=== PATIENT | male | born 1955 | race Caucasian/White ===

== ENCOUNTER 2017-02-18 09:24 | Emergency (ER) | payer OTHER ==
[2017-02-18 10:07] LABS: BASOPHILS # (AUTO) 0.03 10*3/UL; BASOPHILS % (AUTO) 0.4 % (0-1); EOSINOPHILS # (AUTO) 0.45 10*3/UL; EOSINOPHILS % (AUTO) 5.9 % (0-8); HEMATOCRIT 42.3 % (42.0-52.0); HEMOGLOBIN 14.1 g/dL (14.0-18.0); LYMPHOCYTES # (AUTO) 1.67 10*3/uL; MEAN CORPUSCULAR HEMOGLOBIN 30.2 PG (27-31); MEAN CORPUSCULAR HGB CONC 33.3 g/dL (33-37); MEAN CORPUSCULAR VOLUME 90.6 FL (80-90); MEAN PLATELET VOLUME 9.9 FL (7.4-12.2); MONOCYTES # (AUTO) 0.86 10*3/UL (0.3-0.8); MONOCYTES % (AUTO) 11.3 % (5-15); NEUTROPHILS % (AUTO) 60.1 % (50-80); RED BLOOD COUNT 4.67 10^6/uL (4.70-6.10)
[2017-02-18 10:20] LABS: PLATELET MORPHOLOGY COMMENT NORMAL MORPHOLOGY (NORM); RBC MORPHOLOGY COMMENT NORMAL MORPHOLOGY (NORM); WBC MORPHOLOGY COMMENT NORMAL MORPHOLOGY (NORM)
[2017-02-18 10:39] VITALS: RESP 18; TEMP 64
[2017-02-18] MEDS ORDERED: KETOROLAC 60 MG/2 ML VIAL IM ONE (11:14)
--- NOTE | 2017-02-18 11:17 | DI ---
HISTORY: Sudden onset of severe left hip pain x3 days. FINDINGS/IMPRESSION: No evidence for acute displaced fracture. If warranted, MRI can be obtained fo r further evaluation.
--- NOTE | 2017-02-19 00:11 | PDOC ---
Hip Injury/Pain HPI - General Chief Complaint: Lower Extremity Problem/Injury Stated Complaint: left hip pain/difficulty walking Date Seen by Provider: 02/18/17 Time Seen by Provider: 09:35 Source: POSITIVE: Patient Exam Limitations: POSITIVE: No limitations Nurse's Notes Reviewed & Considered: Yes - History of Present Illness Initial Comments: The patient is a 61-year-old male. He presents to the emergency room complaining of pain to the left hip for the past 2 days. The pain is over the lateral aspect of the hip primarily. He states that the pain is worse when he starts to ambulate after resting for a while, especially when he gets up in the morning. He states that after he has walk for a while the pain lessens. 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 He cannot recall any direct trauma. Patient has a history of benign prostatic hypertrophy. No fevers or chills. No noted swelling. Have you received a tetanus shot in the past 10 years?: Unknown Location: Left Hip Timing: REPORTS: Abrupt, Intermittent (Pain with ambulation and direct palpation over lateral aspect of hip) Duration: >24 hours (2 days) Severity: Moderate Location at Time of Onset: REPORTS: Home Context: DENIES: Fall, Tripped, Slipped, Lost Balance, Fainted, Other Concurrent Injuries: DENIES: Neck, Head, Back, Chest, Abdomen, Extremities, Face , Other Quality: REPORTS: "Pain" (As above) Modifying Factors: REPORTS: Walking (Walking exacerbates, but pain becomes less after he has ambulated some), Other (Direct palpation) Symptoms Prior to Fall: DENIES: Fever, Chills, Diaphoresis, Diaphoresis, Chest Pain, Weakness, Rapid Heart Rate, Nausea, Vomiting, Diarrhea, Dizziness, Light- Headedness, Headache, Seizure, Other Subsequent Symptoms: DENIES: Sensory Loss, Motor Loss, Numbness, Weakness, Bowel / Bladder Problems, Other Similar Symptoms Previously: No Recent Care Received: REPORTS: Denies Any Prior Injuries Related to Current Complaint?: No - Patient Home Medications Home Medications: Home Medications Aspirin [Aspir 81] 81 mg ORAL QD tab 12/10/11 [place]-3 Fatty Acids/Fish Oil [Fish Oil 1,000 Mg Capsule] 1 each PO QD #90 cap Cholecalciferol (Vitamin D3) [Vitamin D-3] 1 cap PO QD #90 cap 11/10/15 Finasteride 1 tab ORAL QD #30 tab 01/28/17 Simvastatin 1 tab PO QHS #30 tab 01/28/17 Tamsulosin HCl [Flomax] 1 cap ORAL QD #30 capsule 01/28/17 Ibuprofen [Advil] 400 mg PO QID PRN 02/18/17 Ketorolac Tromethamine [Toradol] 10 mg PO Q6H PRN #20 tablet 02/18/17 - Patient Allergies Allergies/Adverse Reactions: Allergies Allergy/AdvReac Type Severity Reaction Status Date / Time No Known Allergies Allergy Verified 02/18/17 09:32 Past Medical History - heen HEENT History: Dentures/Partials, Other (please comment) Additional HEENT History: WEARS GLASSES. TAKEN OUT DENTURES Cardiovascular History: Hyperlipidemia Respiratory History: Pleurisy Gastrointestinal History: Denies History Genitourinary History: Other (please comment) Additional Genitourinary History: BPH Endocrine History: Denies History Musculoskeletal History: Denies History Prosthesis or Implant: No Neurological History: Denies History Blood Disorders: Denies History Psychiatric History: Denies History History of Sexually Transmitted Diseases: No Male Reproductive History: Other (please comment) Additional Male Reproductive History: enlarged prostate Cancer History: Denies History In Past Year Been Physically Harmed or Verbally Threatened: No History of MDRO: No History of Other Communicable Diseases: No Tobacco Use: Never Smoker Alcohol Use: Rarely Substance Use Type: None Previous Surgical History: Yes Type / Date of Surgery: PROSTATE BX Anesthesia Reactions: No Malignant Hyperthermia: No Significant Family History: No pertinent family hx Past Medical History Reviewed: Reviewed - No Changes ROS - Limitations ROS Limitations: No Limitations Constitution: REPORTS: Denies Symptoms Cardiovascular: REPORTS: Denies Cardiac Symptoms Respiratory: REPORTS: Denies Resp Symptoms Neurological: REPORTS: Denies Neuro Symptoms Gastrointestinal: REPORTS: Denies GI Symptoms Endocrine: REPORTS: Denies Symptoms Musculoskeletal: REPORTS: Joint Pain (Left hip) Genitourinary: REPORTS: Denies Symptoms Eyes: REPORTS: Denies Symptoms ENT: REPORTS: Denies Symptoms Skin: REPORTS: Denies Skin Symptoms Lympathic: REPORTS: Denies Lympathic Symptoms Immunologic: POSITIVE: Denies Symptoms Psychiatric: POSITIVE: Denies Psych Symptoms Hip Injury / Pain Exam - General Appearance General Appearance: POSITIVE: Alert, Cooperative, No Acute Distress, No Evidence of Trauma - Lower Extremity Extremities: POSITIVE: Normal ROM, No Pedal Edema, No Obvious Injury to Knee, No Deformity to Knee, Normal Tendon Exam, Hip Pain on Leg Movement (No pain left hip on passive movement. Range of motion of the hip is intact. Pain is exacerbated when he abduction his hip, especially against resistance. He has pain on direct palpation over the greater trochanter.). NEGATIVE: Shortening of Leg, External Rotation of Leg, Hip/Knee Tenderness, Pedal Edema, Ecchymosis, Erythema, Soft Tissue Injury - HEENT HEENT: POSITIVE: Head Inspection Nml, Eyes Inspection Nml, Ears Inspection Nml, Nose Inspection Nml, Oral/Dental Inspect. Nml, Pharynx Inspect. Nml, PERRL, EOMI - Pupil Size Pupil Size: 3 mm: Bilateral - Neck/Back Neck: POSITIVE: Normal Inspection, Non-Tender Back: POSITIVE: Normal Inspection, No CVA Tenderness, Non Tender, Painless ROM, No Vertebral Tenderness - Respiratory / CVS Cardiovascular: POSITIVE: Regular Rate and Rhythm, Heart Sounds Normal, Equal Pulses, Strong Pulses, No Murmur, No Gallop, No JVD, No Pulse Deficit Respiratory: POSITIVE: Chest Non Tender, No Ecchymosis, Breath Sounds Normal, No Respiratory Distress Peripheral Pulses: Radial (R): 2+, Radial (L): 2+, Dorsalis-pedis (R): 2+, Dorsalis-pedis (L): 2+ - Skin Skin: POSITIVE: Color Normal, No Rash, Warm, Dry, Normal Palpation, Other (No signs of infection) - Neuro/Psych Neuro / Psych: POSITIVE: Oriented x 3, Neuro Grossly Intact, Mood Appropriate, Affect Appropriate Reflexes: Patellar (R): 2+, Patellar (L): 2+ Images - Lower Extremities Lower Extremities: 1 - Pain on palpation over the trochanter 2 - Pain on palpation over the trochanter Hip Injury / Pain Progress - Results Reviewed by me Xrays/CTs/US Reviewed by me: Yes Discussed with Radiologist: Yes Radiology Findings: X-ray left hip normal Lab Results Reviewed: Yes (CBC, CRP and sedimentation rate all normal) Lab Results:: Laboratory Results 02/18/17 Range/Units 10:02 WBC 7.64 (4.8-10.8) 10^3/uL RBC 4.67 L (4.70-6.10) 10^6/uL Hgb 14.1 (14.0-18.0) g/dL Hct 42.3 (42.0-52.0) % MCV 90.6 H (80-90) FL MCH 30.2 (27-31) PG MCHC 33.3 (33-37) g/dL RDW Std Deviation 41.3 (39-50) fL RDW Coeff of [place] 12.6 (11.5-14.5) % Plt Count 297 (140-350) 10*3/uL MPV 9.9 (7.4-12.2) FL Immature Gran % (Auto) 0.4 (0-5) % Neut % (Auto) 60.1 (50-80) % Lymph % (Auto) 21.9 (10-50) % [place] % (Auto) 11.3 (5-15) % Eos % (Auto) 5.9 (0-8) % Baso % (Auto) 0.4 (0-1) % Immature Gran # (Auto) 0.03 10*3/UL Neut # (Auto) 4.60 10*3/UL Lymph # (Auto) 1.67 10*3/uL [place] # (Auto) 0.86 H (0.3-0.8) 10*3/UL Eos # (Auto) 0.45 10*3/UL Baso # (Auto) 0.03 10*3/UL WBC Morphology Comment Normal morphology (NORM) Plt Morphology Comment Normal morphology (NORM) RBC Morph Comment Normal morphology (NORM) ESR 6 (0-15) MM/HR C-Reactive Protein < 0.5 (0.0-0.9) mg/dL - Patient's Progress Pain Medication Addressed: POSITIVE: Yes (Toradol 60 mg IM given and prescription for Toradol by mouth as outpatient) School/Work Release Addressed: POSITIVE: Yes (Work excuse for 72 hours given) Re-Examine Time: 11:20 Status: POSITIVE: Unchanged, Re-Examined - Consult Counseled: POSITIVE: Patient, Family (), RE: Lab Results, RE: Radiology Results, RE: DX, RE: Need for F/U Patient Care Time - Estimated PCT Patient Care Time (In Minutes): 45 Vital Signs - VS Reviewed Vital Signs Reviewed: Yes Discharge Clinical Impression: Trochanteric bursitis Discharge Disposition: Discharged to Home Condition: Stable Prescriptions / Orders: Ketorolac Tromethamine [Toradol] 10 mg PO Q6H PRN #20 tablet PRN Reason: Pain Patient Instructions Given at Discharge: Hip Bursitis (ED) Additional Instructions: Rest for the next 72 hours. Keep weightbearing to a minimum. Cool compresses to area of discomfort. Toradol, take 24 hours after your shot which she received in the emergency room, and then 1 tablet every 4-6 hours as necessary for pain up to a maximum of 4 in 24 hours. Do not take Advil, ibuprofen, Aleve , Naprosyn or any similar anti-inflammatory medications while you're taking Toradol. Follow-up with your primary care provider or orthopedist if you are not considerably improved in 3 or 4 days. Return here anytime if condition worsens in any way whatsoever. I have given you a work excuse for 3 days. Follow Up With: RUTH SCOTT [Primary Care Provider] - (Instructions as above. Follow-up with your primary care provider or orthopedist. Return here anytime if condition worsens in any way.)
== END 2017-02-18 11:47 | disposition home or self-care (01) ==
LOC: ER 09:24
DX: M70.62 Trochanteric bursitis, left hip (principal); N40.0 Benign prostatic hyperplasia without lower urinary tract symptoms; E78.5 Hyperlipidemia, unspecified
CPT/HCPCS: 73502; 85025; 85652; 86140; 96372; 99283 ×2; J1885

== ENCOUNTER 2018-03-27 09:14 | Inpatient (IN) ==
[2018-03-27] MEDS ORDERED: Sodium Chloride 0.9% 1,000 ML PRIMARY IV ONE ×2 (09:32→11:41)
[2018-03-27] MEDS ORDERED: MORPHINE SULFATE 4 MG/1 ML IVP ONE ×3 (09:32→13:37)
[2018-03-27] MEDS ORDERED: ONDANSETRON 4 MG/2 ML VIAL IVP ONE (09:32)
--- NOTE | 2018-03-27 09:34 | EKG ---
[address] [address] Measurements Intervals [place] Rate: 57 P: 46 CO: 153 QRS: 93 QRSD: 103 T: 69 QT: 386 QTc: 380 Interpretive Statements SINUS BRADYCARDIA BORDERLINE RIGHT AXIS DEVIATION Compared to ECG 01/27/2015 14:59:49 Sinus rhythm no longer present Electronically Signed On 03-27-18 10:50:51 MDT by Oseas Avila [email or web address] [facility], [id number]
--- NOTE | 2018-03-27 09:36 | PDOC ---
Abdomen/Flank HPI - General Chief Complaint: Abdomen Pain Stated Complaint: epigastric pain Date Seen by Provider: 03/27/18 Time Seen by Provider: 09:20 Source: POSITIVE: Patient, Spouse Exam Limitations: POSITIVE: Clinical condition Nurse's Notes Reviewed & Considered: Yes - History of Present Illness Initial Comments: This is a well-developed, well-nourished, 62-year-old male, complaining of severe abdominal pain. Patient was in his normal state of health this morning when he developed abdominal bloating that began about 0800 hrs. and progressed to severe abdominal pain. He had his normal breakfast this morning which consisted of cereal, milk, and coffee. His breakfast was at approximately 0430 hrs. 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 He contacted his to bring him medicine for his bloating. After he took his Gas-X his pain significantly increased. When he arrived here at the emergency department he was moaning, clutching his abdomen with both hands, and nearly incoherent when questioned. Further review of systems is unavailable because of the patient's clinical status. Patient was found to be tachypneic, bradycardic, and hypotensive. Body Location Affected: REPORTS: Abdomen Timing: REPORTS: Abrupt Duration: 1 hour Severity: Severe Quality: REPORTS: "Pain" Abdominal Pain Onset Location: REPORTS: Epigastric Abdominal Pain Radiation: REPORTS: Epigastric Context: REPORTS: Activity Modifying Factors: improves with: Nothing Associated Symptoms: REPORTS: Chest pain Similar Symptoms Previously: No Recent Care Received: REPORTS: Denies Any Prior Injuries Related to Current Complaint?: No - Patient Home Medications Home Medications: Home Medications Aspirin [Aspir 81] 81 mg ORAL QD tab 12/10/11 [place]-3 Fatty Acids/Fish Oil [Fish Oil 1,000 Mg Capsule] 1 ea PO QD #90 cap Cholecalciferol (Vitamin D3) [Vitamin D-3] 1 cap PO QD #90 cap 11/10/15 Tamsulosin HCl [Flomax] 1 cap ORAL QD #30 cap 01/28/17 Ibuprofen [Advil] 400 mg PO QID PRN 02/18/17 finasteride 5 mg tablet 5 mg PO QDAY #30 tab 02/19/18 simvastatin 40 mg tablet 40 mg PO QHS #30 tab 03/25/18 - Patient Allergies Allergies/Adverse Reactions: Allergies 3 Allergy/AdvReac Type Severity Reaction Status Date / Time No Known Allergies Allergy Verified 03/27/18 09:17 Past Medical History - heen HEENT History: Dentures/Partials, Other (please comment) Additional HEENT History: WEARS GLASSES. TAKEN OUT DENTURES Cardiovascular History: Hyperlipidemia Respiratory History: Pleurisy Gastrointestinal History: Denies History Genitourinary History: Other (please comment) Additional Genitourinary History: BPH Endocrine History: Denies History Musculoskeletal History: Denies History Prosthesis or Implant: No Neurological History: Denies History Blood Disorders: Denies History Psychiatric History: Denies History History of Sexually Transmitted Diseases: No Male Reproductive History: Denies History Cancer History: Denies History In Past Year Been Physically Harmed or Verbally Threatened: No History of MDRO: No History of Other Communicable Diseases: No Tobacco Use: Never Smoker Alcohol Use: Rarely In the Past 12 Months, Have Used or Abuse Any Substance: None Previous Surgical History: Yes Type / Date of Surgery: PROSTATE BX Anesthesia Reactions: No Malignant Hyperthermia: No Significant Family History: No pertinent family hx ROS - Limitations ROS Limitations: Clinical Condition (Further review of systems is unavailable because the patient's clinical status.) Abdominal/Flank Pain PE - General Appearance General Appearance: POSITIVE: No Evidence of Trauma, Anxious, Severe Distress - HEENT HEENT: POSITIVE: Head Inspection Nml, Eyes Inspection Nml, Ears Inspection Nml, Nose Inspection Nml, Oral/Dental Inspect. Nml, Pharynx Inspect. Nml, PERRL, EOMI - Neck Neck: POSITIVE: Normal Inspection, No Apparent Injury - Respiratory Respiratory: POSITIVE: Breath Sounds Normal, Chest Non-Tender, Other (Tachypnea) - Cardiovascular Cardiovascular: POSITIVE: Regular Rate and Rhythm, Heart Sounds Normal, Strong Pulses Peripheral Pulses: Radial (R): 2+ - Chest Chest: POSITIVE: Non Tender - Abdomen Abdomen: No Splenomegaly: (All Quadrants), No Hepatomegaly: (All Quadrants), No Rebound: (All Quadrants), No Palpable Pulse: (All Quadrants), No Palpabale Mass : (All Quadrants), Tenderness Noted: (All Quadrants), Distention: (All Quadrants ), Guarding: (All Quadrants), Rigid: (All Quadrants) - Back Back: POSITIVE: Normal Inspection - Skin Skin: POSITIVE: Intact, Normal For Race, Warm, Dry, No Rash - Extremities Extremity: Non-Tender: (All Extremities), Normal ROM: (All Extremities), Normal Inspection: (All Extremities), Pelvis Stable: (All Extremities) - Neurological Neurological: POSITIVE: Affect Apporpriate, Oriented X3, Motor Normal, Sensation Normal - Psychological Psychiatric: POSITIVE: Affect Appropriate, Mood Appropriate Abdomen Progress - Results Reviewed by me Xrays/CTs/US Reviewed by me: Yes Discussed with Radiologist: Yes Lab Results Reviewed by Me: Yes CBC and BMP: 03/27/18 09:35 03/27/18 09:35 EKG Interpreted/Reviewed By Me:: Yes (sinus bradycardia with rate of 57 beats a minute) EKG Interpretation:: POSITIVE: Abnormal EKG - Patient's Progress Pain Medication Addressed: POSITIVE: Yes Re-examine Time: 11:17 Re-Examine Time: 14:09 Status: POSITIVE: Improved - Consult Consult (If Yes, Name of Consulting MD & Time Called): Yes (Dr. Serrato 1100hrs. Dr. Serrato 1410hrs) Consulting MD will see pt:: [place]ITIVE: [facility] [place] Counseled: POSITIVE: Patient, Family, RE: Lab Results, RE: Radiology Results, RE : DX - CP/AMI Quality Measure Initiative: CP/AMI: POSITIVE: EKG Patient Care Time - Estimated PCT Patient Care Time (In Minutes): 60 Vital Signs - Recent Vital Signs Vital Signs: Vital Signs (Last 8 hours) Temp Pulse Resp BP Pulse Ox 03/27/18 09:14 97.2 F 57 L 30 H 94/84 98 - VS Reviewed Vital Signs Reviewed: Yes Discharge Clinical Impression: Pancreatitis Discharge Disposition: Admit to Inpatient Condition: Stable Follow Up With: RUTH SCOTT [Primary Care Provider] - Date Decision to Admit to Inpatient: 03/27/18 Time Decision to Admit to Inpatient: 14:10
[2018-03-27 09:37] LABS: BASOPHILS # (AUTO) 0.03 10*3/UL; BASOPHILS % (AUTO) 0.2 % (0-1); EOSINOPHILS # (AUTO) 0.26 10*3/UL; EOSINOPHILS % (AUTO) 1.5 % (0-8); Hematocrit [HCT] 41.2 % (42.0-52.0); Hemoglobin [HGB] 14.1 g/dL (14.0-18.0); LYMPHOCYTES # (AUTO) 2.21 10*3/uL; MEAN CORPUSCULAR HEMOGLOBIN 31.1 PG (27-31); MEAN CORPUSCULAR HGB CONC 34.2 g/dL (33-37); MEAN CORPUSCULAR VOLUME 90.7 FL (80-90); MEAN PLATELET VOLUME 10.2 FL (7.4-12.2); MONOCYTES # (AUTO) 0.63 10*3/UL (0.3-0.8); MONOCYTES % (AUTO) 3.6 % (5-15); NEUTROPHILS # (AUTO) 14.29 10*3/UL; NEUTROPHILS % (AUTO) 81.8 % (50-80); RED BLOOD COUNT 4.54 10^6/uL (4.70-6.10)
[2018-03-27] MEDS ORDERED: LORazepam 2 MG/1 ML VIAL IVP ONE ×2 (09:37→13:37)
[2018-03-27 09:52] LABS: BLOOD UREA NITROGEN 22 mg/dL (7-22); BUN/CREATININE RATIO 18.33 (6-20); CHOL/HDL RATIO 2.34 RATIO (0-4.0); GAMMA GLUTAMYL TRANSPEPTIDASE 529 IU/L (8-78); SERUM ALBUMIN 4.2 g/dL (3.5-4.8); SERUM CHOLESTEROL 157 mg/dL (120-200)
--- NOTE | 2018-03-27 10:13 | DI ---
AP CHEST X-RAY, 03/27/2018 9:32 AM : Clinical History: Shortness of breath. Previous Exam: 01/08/2007. On this view, the patient took a shallow inspiration. There is no acute soft tissue or bony abnormali ty. The heart size is at the upper limits of normal for this projection and shallow inspiration. Ther e is no CHF. Lungs are clear. Mediastinal structures are normal. There are no pulmonary nodules. Reading: Normal chest x-ray for the shallow inspiratory effort.
[2018-03-27 10:25] LABS: PLATELET MORPHOLOGY COMMENT NORMAL MORPHOLOGY (NORM); RBC MORPHOLOGY COMMENT NORMAL MORPHOLOGY (NORM); WBC MORPHOLOGY COMMENT NORMAL MORPHOLOGY (NORM)
[2018-03-27 10:36] LABS: CLARITY,URINE CLEAR (CLEAR); COLOR,URINE YELLOW (Y); GLUCOSE, URINE (UA) NEGATIVE (NEG); PH,URINE 5.5 (5.0-8.5); PROTEIN,URINE NEGATIVE (NEG); URINE SAMPLE TYPE CLEAN CATCH URINE
[2018-03-27 10:37] LABS: BILIRUBIN,URINE NEGATIVE (NEG); OCCULT BLOOD,URINE NEGATIVE (NEG); UROBILINOGEN,URINE 0.2 EU/dL (0.2)
[2018-03-27 10:57] LABS: LIPASE 37450 IU/L (23-300)
--- NOTE | 2018-03-27 11:00 | DI ---
CT ANGIOGRAM OF THE CHEST, 03/27/2018 10:04 AM : Clinical History: Chest pain. Shortness of breath. Previous Exam: None at this facility. Scans are performed from the base of the neck to the lower lung bases with IV contrast. 65 mL of Isov ue 370 was injected IV. Proprietary automated bolus tracking software was used to verify the timing o f the injection. The base of the neck and thoracic inlet are normal. There are no abnormal axillary, supraclavicular, mediastinal, or hilar nodes. The heart is normal. The pulmonary arteries are normal. There is no pulm onary arterial hypertension. There is no evidence of pulmonary embolism or pulmonary infarction. The lungs are clear and there are no pulmonary nodules or masses. READING: Normal CTA of the chest. There are no pulmonary emboli or pulmonary infarcts.
--- NOTE | 2018-03-27 11:49 | DI ---
CT ABDOMEN SCAN WITH IV CONTRAST, 03/27/2018 9:32 AM : Clinical History: Epigastric pain. Previous Exam: None at this facility. Scans are performed from the lower lung bases through the liver and kidneys with IV contrast. This is the same bolus of contrast used for the CT angiogram of the chest. No oral or rectal contrast was or dered. The lung bases are clear. The liver is normal. There are at least 2 densities within the gallbladder measuring about 3-5 mm in diameter consistent with gallstones. There is no thickening of the gallblad radha wall or edema to indicate acute cholecystitis. The common duct is difficult to visualize but is e stimated to measure between 5-6 mm in diameter. There is diffuse infiltrative/inflammatory change ori rounding the entire pancreas consistent with pancreatitis. No abscess or pseudocyst is present. There are no pancreatic calcifications. There is a small amount of fluid that either is in the retroperito adelaida space in the perinephric fat or is in the intraperitoneal space superficial to the right perinep hric fascia. Both kidneys are normal in size, shape, position and contour. There is no hydronephrosis or hydroureter. Both kidneys have parapelvic cysts. No renal or ureteral calculi are present. There are no abnormal retrocrural or periaortic nodes. READIN. Acute pancreatitis. There is no pseudocyst or abscess. There are no pancreatic calcifications. 2. Cholelithiasis without evidence of cholecystitis. The common duct is difficult to visualize but m easures between 5-6 mm. 3. There may be a small amount of ascites anterior to the right kidney. CT PELVIS SCAN WITH IV CONTRAST, 03/27/2018 9:32 AM: Clinical History: See above. Previous Exam: None at this facility. Scans are performed from just superior to the umbilicus to the symphysis pubis with IV contrast. This is the same bolus of contrast used for the CT scans of the abdomen. Scans through the lower abdomen and pelvis show no masses, enhancing lesions, or abnormal fluid colle ctions. There is no adenopathy. The appendix is normal and is retrocecal in location. The small bowel , terminal ileum, and ileocecal valve are normal. The colon is also normal. There is a small umbilica l hernia through which only mesenteric fat has herniated. There is marked enlargement of the prostate . READIN. Normal CT scan of the pelvis with IV contrast. 2. There is marked prostatic enlargement.
--- NOTE | 2018-03-27 13:08 | DI ---
GALLBLADDER AND LIVER ULTRASOUND, 03/27/2018 11:37 AM: Clinical History: Epigastric pain. Previous Exam: None at this facility. Technique: Scans are performed through the right upper quadrant in multiple projections. The patient was rolled from side to side and the gallbladder was balloted with the probe to facilitate visualizat ion of small gallstones. The gallbladder is well distended and has a normal wall thickness. There are gallstones. The largest gallstone measures 7 mm. The common bile duct measures 5 mm. There is no Brock's sign. No fluid is s een in Morison's pouch. The pancreas is only visualized in the body and is grossly normal. The visual ized portions of the liver, right kidney, and IVC are normal. The aorta is normal. Readin. Cholelithiasis. There is no Brock's sign. The common duct measures 5 mm. 2. Only a limited portion of the pancreas is visualized and that area appears grossly normal. 3. Limited views of the liver, right kidney, IVC, and aorta are normal.
--- NOTE | 2018-03-27 14:23 | DI ---
MRI ABDOMEN WITHOUT IV CONTRAST, 03/27/2018 11:17 AM: Clinical History: Abdominal pain. Pancreatitis. Previous Exam: None at this facility. Axial T1 pre contrast; axial and coronal T2 weighted fat sat; axial breath-hold T2 weighted; axial in and out of phase T1-weighted scans. A 3-D MRCP sequence and an MRCP thick slice fat-saturated T2-lisa ghted scan was performed No oral contrast was administered. There are extensive motion artifacts because the patient apparently fell asleep during the breath hol d sequences, and was also short of breath. The liver and both adrenal glands and the spleen are neelima l. There are at least 2 gallstones present in the neck of the gallbladder. The common hepatic duct me asures 5 mm and the common bile duct measures 5 mm. Thick slice MRCP images. They show no intrahepati c biliary dilatation. The distal common bile duct in the head of the pancreas has an abrupt change in caliber but this can also be merely that the duct makes a right angle turn as it enters into the amp daniel. The pancreatic duct is normal. There is edema surrounding the anterior and posterior margins of the pancreas indicating acute inflammation. There is fluid in the retroperitoneal space anterior to the renal fascia bilaterally with a small amount of free fluid in the right gutter. Both kidneys show parapelvic cysts without evidence of hydronephrosis or hydroureter. Readin. Cholelithiasis. The common hepatic and common bile ducts measure 5 mm. Although the distal common bile duct has the appearance of an abrupt cutoff, there is no definite meniscus, and it could be donna t the distal common bile duct is making a sharp right angle turn into the ampulla. If there were a di stal common bile duct stone, then it would be causing only a low-grade partial obstruction because th e common duct is not dilated. 2. Pancreatitis. No mass is identified, although no IV contrast was administered. There is fluid in the retroperitoneal space as well as in the right gutter. 3. The liver, both adrenal glands, and spleen are normal.
[2018-03-27] MEDS ORDERED: HYDROmorphone 2 MG/1 ML IVP PRN (15:02)
[2018-03-27] MEDS ORDERED: CALCIUM CARBONATE 500 MG (TUMS) CHEWABLE TABLET PO PRN (15:02)
[2018-03-27] MEDS ORDERED: DOCUSATE 100 MG CAPSULE PO PRN (15:02)
[2018-03-27] MEDS ORDERED: ACETAMINOPHEN 325 MG TABLET PO PRN (15:02)
[2018-03-27] MEDS ORDERED: ONDANSETRON 4 MG/2 ML VIAL IVP PRN (15:02)
[2018-03-27] MEDS ORDERED: LIDOCAINE W/ SODIUM BICARB 0.5 ML SYR SUBD PRN (15:02)
[2018-03-27] MEDS: D5-1/2NS + 20mEq KCL 1,000 ML PRIMARY IV SCH ×2 (15:38→22:50)
--- NOTE | 2018-03-27 16:32 | PDOC ---
HPI - History of Present Illness Date of Service: 03/27/18 Time of Service: 16:27 Chief Complaint: Abdominal pain and nausea and vomiting History of Present Illness: This very pleasant 62-year-old male with benign prostatic hypertrophy with urinary symptoms who comes in today with complaints of midepigastric pain and nausea and vomiting. He was fairly pale and I was shaking this morning. He vomited twice. He came in for evaluation. He was found to have pancreatitis and he also has a gallstone. The gallbladder was not inflamed but the liver enzymes were elevated. His total bilirubin was slightly elevated. He states to me that he had a prior episode of pancreatitis about 2 years ago that was treated as an outpatient. At that time it was stated that they did not know what caused his pancreatitis although he was told he did have a gallstone. The patient denies any fevers. He states morphine did help the pain in the emergency room. He states this episode is been much more severe than the prior one. He does admit to having one beer last night and 2 beers the night before. He usually has a beer or 2 about every 6 months. He has not had any prior surgeries other than a prostate biopsy. He denies any chest pain or shortness of breath with this episode. Workup today including an abdominal MRI and an ultrasound that showed no evidence of common bile duct obstruction. Past Medical History Medical History: 1. Benign prostatic hypertrophy with obstructive symptoms Surgical History: 1. Prostate biopsy, negative for prostate cancer. Pertinent Family History: Significant family history of gallbladder disease including his siblings, his parents. His father of COPD and his mother had breast cancer and Alzheimer's dementia. Past Social History: Does not smoke. Rarely drinks alcohol. . Had 3 children but one unfortunately of SIDS. His other 2 children are healthy. 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 Tobacco Use: Never Smoker Do you dip or chew tobacco: No In the Past 12 Months, Have Used or Abuse Any of the Following Substance: None Alcohol Use: Rarely Medication / Allergies Home Medications: Home Medications 3 Medication Instructions Recorded Confirmed Type Aspirin [Aspir 81] 81 mg ORAL QD tab 12/10/11 03/27/18 History [facility]-3 Fatty Acids/Fish Oil [Fish 1 ea PO QD #90 cap 10/23/12 03/27/18 History Oil 1,000 Mg Capsule] Cholecalciferol (Vitamin D3) 1 cap PO QD #90 cap 11/10/15 03/27/18 History [Vitamin D-3] Tamsulosin HCl [Flomax] 1 cap ORAL QD #30 cap 01/28/17 03/27/18 Rx Ibuprofen [Advil] 400 mg PO QID PRN 02/18/17 03/27/18 History finasteride 5 mg tablet 5 mg PO QDAY #30 tab 02/19/18 03/27/18 Rx simvastatin 40 mg tablet 40 mg PO QHS #30 tab 03/25/18 03/27/18 Rx Glucosamine Sulfate Dipot Chlr 1,000 mg PO DAILY 03/27/18 03/27/18 History [Glucosamine] Allergies/Adverse Reactions: Allergies 3 Allergy/AdvReac Type Severity Reaction Status Date / Time No Known Allergies Allergy Verified 03/27/18 09:17 Review of Systems - Review of Systems All Systems: Reviewed & No Additional Complaints Except as Stated (I did a 12 point review systems and it was negative other than that discussed in history of present illness and that noted below.) - Constitutional Constitutional: REPORTS: Fever / Chills (Chills, no fever recorded. Patient looked yellow to his earlier today but that resolved.) - Genitourinary Genitourinary: REPORTS: Hesitant Stream, Decreased Stream Exam - Vitals Vital Signs: Vital Signs Temperature 97.2 F Temperature Source Temporal Artery Scan Pulse Rate [Apical] 80 Pulse Rate 96 Respiratory Rate 14 Blood Pressure [Left Arm] 94/84 Blood Pressure 101/74 Pulse Ox 96 Oxygen Flow Rate 2 Oxygen Delivery Method Nasal Cannula Height 5 ft 9 in Weight 191 lb 3.2 oz - General General Appearance: No Acute Distress, Cooperative - Head Head Exam: Atraumatic - Eye Eye Exam: POSITIVE: No Scleral Icterus - ENT ENT Exam: POSITIVE: Mucous Membranes Dry - Neck Neck Exam: Normal Inspection, No Tenderness, No Lymphadenopathy, No Thyromegaly , JVP is not Raised - Respiratory Respiratory Exam: POSITIVE: Clear to Auscultation - Bilaterally, Breathing Non Labored, Normal to Percussion and Palpation - Cardiovascular Cardiovascular Exam: POSITIVE: RRR, No Murmur, No Clicks, No Gallops, No Rubs, No JVD - GI/Abdominal GI/Abdominal Exam: POSITIVE: Normal Bowel Sounds, Non Distended, Soft Additional GI/Abdominal Exam Details: Positive epigastric tenderness. - Rectal Rectal Exam: POSITIVE: Deferred - External Exam: POSITIVE: Deferred Exam: POSITIVE: Deferred - Extremities Extremities Exam: POSITIVE: No Clubbing Present, No Edema Present, No Cyanosis Present - Back Back Exam: POSITIVE: Normal Inspection, No CVA Tenderness - Neurological Neurological Exam: POSITIVE: Alert, Oriented x 3, No Facial Droop, Speech Intact / Clear, Moves All Extremities Equally - Psychiatric Psychiatric Exam: POSITIVE: Normal Affect, Normal Mood Results - Labs CBC and BMP: 03/27/18 09:35 03/27/18 09:35 Additional Lab Results: Laboratory Results 03/27/18 03/27/18 03/27/18 Range/Units 09:35 09:35 09:35 WBC 17.45 H (4.8-10.8) 10^3/uL RBC 4.54 L (4.70-6.10) 10^6/uL Hgb 14.1 (14.0-18.0) g/dL Hct 41.2 L (42.0-52.0) % MCV 90.7 H (80-90) FL MCH 31.1 H (27-31) PG MCHC 34.2 (33-37) g/dL RDW Std Deviation 41.8 (39-50) fL RDW Coeff of [place] 12.8 (11.5-14.5) % Plt Count 309 (140-350) 10*3/uL MPV 10.2 (7.4-12.2) FL Immature Gran % (Auto) 0.2 (0-5) % Neut % (Auto) 81.8 H (50-80) % Lymph % (Auto) 12.7 (10-50) % [place] % (Auto) 3.6 L (5-15) % Eos % (Auto) 1.5 (0-8) % Baso % (Auto) 0.2 (0-1) % Immature Gran # (Auto) 0.03 10*3/UL Neut # (Auto) 14.29 10*3/UL Lymph # (Auto) 2.21 10*3/uL [place] # (Auto) 0.63 (0.3-0.8) 10*3/UL Eos # (Auto) 0.26 10*3/UL Baso # (Auto) 0.03 10*3/UL WBC Morphology Comment Normal morphology (NORM) Plt Morphology Comment Normal morphology (NORM) RBC Morph Comment Normal morphology (NORM) D-Dimer (0.00-0.59) mg/L Sodium 141 (135-145) meq/L Potassium 4.0 (3.8-5.2) meq/L Chloride 106 (98-112) meq/L Carbon Dioxide 23 (23-33) meq/L Anion Gap 12 (5-20) BUN 22 (7-22) mg/dL Creatinine 1.2 (0.70-1.50) mg/dL Estimated GFR > 60 (>60 ml/min/1.73m(2)) BUN/Creatinine Ratio 18.33 (6-20) Glucose 133 H (78-110) mg/dL Calculated Osmolality 296.0 H (267-292) mOsm/kg Calcium 9.6 (8.7-10.7) mg/dL Magnesium 1.9 (1.6-2.4) mg/dL Total Bilirubin 1.5 H (0.3-1.2) mg/dL GGT 529 H (8-78) IU/L AST 212 H (21-57) IU/L ALT 142 H (21-72) IU/L Alkaline Phosphatase 109 (38-126) IU/L CK-MB (CK-2) 1.91 (0.00-5.00) NG/ML Troponin I Handheld (< 0.040) ng/mL C-Reactive Protein 0.5 (0.0-0.9) mg/dL NT-Pro-B Natriuret Pep (0-125) PG/ML Total Protein 6.9 (6.1-8.0) g/dL Albumin 4.2 (3.5-4.8) g/dL Globulin 2.8 (2.50-4.10) g/dL Albumin/Globulin Ratio 1.50 (1.3-2.0) mg/g Triglycerides 72 (44-200) mg/dL Cholesterol 157 (120-200) mg/dL LDL Cholesterol, Calc 75.600 mg/dL VLDL Cholesterol 14 (0-40) mg/dL HDL Cholesterol 67 (40-150) mg/dL Cholesterol/HDL Ratio 2.34 (0-4.0) RATIO Amylase 2384 H (30-110) U/L Lipase 23186 H* (23-300) IU/L TSH (0.2700-4.2000) uIU/mL Ur Collection Type Urine Color (Y) Urine Clarity (CLEAR) Urine pH (5.0-8.5) Ur Specific [place] (1.005-1.030) Urine Protein (NEG) mg/dl Urine Glucose (UA) (NEG) mg/dL Urine Ketones (NEG) Urine Occult Blood (NEG) Urine Nitrate (NEG) Urine Bilirubin (NEG) Urine Urobilinogen (0.2) EU/dL Ur Leukocyte Esterase (NEG) Ur Culture Indicated? 03/27/18 03/27/18 03/27/18 Range/Units 09:35 09:35 09:35 WBC (4.8-10.8) 10^3/uL RBC (4.70-6.10) 10^6/uL Hgb (14.0-18.0) g/dL Hct (42.0-52.0) % MCV (80-90) FL MCH (27-31) PG MCHC (33-37) g/dL RDW Std Deviation (39-50) fL RDW Coeff of [place] (11.5-14.5) % Plt Count (140-350) 10*3/uL MPV (7.4-12.2) FL Immature Gran % (Auto) (0-5) % Neut % (Auto) (50-80) % Lymph % (Auto) (10-50) % [place] % (Auto) (5-15) % Eos % (Auto) (0-8) % Baso % (Auto) (0-1) % Immature Gran # (Auto) 10*3/UL Neut # (Auto) 10*3/UL Lymph # (Auto) 10*3/uL [place] # (Auto) (0.3-0.8) 10*3/UL Eos # (Auto) 10*3/UL Baso # (Auto) 10*3/UL WBC Morphology Comment (NORM) Plt Morphology Comment (NORM) RBC Morph Comment (NORM) D-Dimer 0.78 H (0.00-0.59) mg/L Sodium (135-145) meq/L Potassium (3.8-5.2) meq/L Chloride (98-112) meq/L Carbon Dioxide (23-33) meq/L Anion Gap (5-20) BUN (7-22) mg/dL Creatinine (0.70-1.50) mg/dL Estimated GFR (>60 ml/min/1.73m(2)) BUN/Creatinine Ratio (6-20) Glucose (78-110) mg/dL Calculated Osmolality (267-292) mOsm/kg Calcium (8.7-10.7) mg/dL Magnesium (1.6-2.4) mg/dL Total Bilirubin (0.3-1.2) mg/dL GGT (8-78) IU/L AST (21-57) IU/L ALT (21-72) IU/L Alkaline Phosphatase (38-126) IU/L CK-MB (CK-2) (0.00-5.00) NG/ML Troponin I Handheld 0.020 (< 0.040) ng/mL C-Reactive Protein (0.0-0.9) mg/dL NT-Pro-B Natriuret Pep (0-125) PG/ML Total Protein (6.1-8.0) g/dL Albumin (3.5-4.8) g/dL Globulin (2.50-4.10) g/dL Albumin/Globulin Ratio (1.3-2.0) mg/g Triglycerides (44-200) mg/dL Cholesterol (120-200) mg/dL LDL Cholesterol, Calc mg/dL VLDL Cholesterol (0-40) mg/dL HDL Cholesterol (40-150) mg/dL Cholesterol/HDL Ratio (0-4.0) RATIO Amylase (30-110) U/L Lipase (23-300) IU/L TSH 0.879 (0.2700-4.2000) uIU/mL Ur Collection Type Urine Color (Y) Urine Clarity (CLEAR) Urine pH (5.0-8.5) Ur Specific [place] (1.005-1.030) Urine Protein (NEG) mg/dl Urine Glucose (UA) (NEG) mg/dL Urine Ketones (NEG) Urine Occult Blood (NEG) Urine Nitrate (NEG) Urine Bilirubin (NEG) Urine Urobilinogen (0.2) EU/dL Ur Leukocyte Esterase (NEG) Ur Culture Indicated? 03/27/18 03/27/18 Range/Units 09:35 10:28 WBC (4.8-10.8) 10^3/uL RBC (4.70-6.10) 10^6/uL Hgb (14.0-18.0) g/dL Hct (42.0-52.0) % MCV (80-90) FL MCH (27-31) PG MCHC (33-37) g/dL RDW Std Deviation (39-50) fL RDW Coeff of [place] (11.5-14.5) % Plt Count (140-350) 10*3/uL MPV (7.4-12.2) FL Immature Gran % (Auto) (0-5) % Neut % (Auto) (50-80) % Lymph % (Auto) (10-50) % [place] % (Auto) (5-15) % Eos % (Auto) (0-8) % Baso % (Auto) (0-1) % Immature Gran # (Auto) 10*3/UL Neut # (Auto) 10*3/UL Lymph # (Auto) 10*3/uL [place] # (Auto) (0.3-0.8) 10*3/UL Eos # (Auto) 10*3/UL Baso # (Auto) 10*3/UL WBC Morphology Comment (NORM) Plt Morphology Comment (NORM) RBC Morph Comment (NORM) D-Dimer (0.00-0.59) mg/L Sodium (135-145) meq/L Potassium (3.8-5.2) meq/L Chloride (98-112) meq/L Carbon Dioxide (23-33) meq/L Anion Gap (5-20) BUN (7-22) mg/dL Creatinine (0.70-1.50) mg/dL Estimated GFR (>60 ml/min/1.73m(2)) BUN/Creatinine Ratio (6-20) Glucose (78-110) mg/dL Calculated Osmolality (267-292) mOsm/kg Calcium (8.7-10.7) mg/dL Magnesium (1.6-2.4) mg/dL Total Bilirubin (0.3-1.2) mg/dL GGT (8-78) IU/L AST (21-57) IU/L ALT (21-72) IU/L Alkaline Phosphatase (38-126) IU/L CK-MB (CK-2) (0.00-5.00) NG/ML Troponin I Handheld (< 0.040) ng/mL C-Reactive Protein (0.0-0.9) mg/dL NT-Pro-B Natriuret Pep 103 (0-125) PG/ML Total Protein (6.1-8.0) g/dL Albumin (3.5-4.8) g/dL Globulin (2.50-4.10) g/dL Albumin/Globulin Ratio (1.3-2.0) mg/g Triglycerides (44-200) mg/dL Cholesterol (120-200) mg/dL LDL Cholesterol, Calc mg/dL VLDL Cholesterol (0-40) mg/dL HDL Cholesterol (40-150) mg/dL Cholesterol/HDL Ratio (0-4.0) RATIO Amylase (30-110) U/L Lipase (23-300) IU/L TSH (0.2700-4.2000) uIU/mL Ur Collection Type Clean catch urine Urine Color Yellow (Y) Urine Clarity Clear (CLEAR) Urine pH 5.5 (5.0-8.5) Ur Specific [place] 1.010 (1.005-1.030) Urine Protein Negative (NEG) mg/dl Urine Glucose (UA) Negative (NEG) mg/dL Urine Ketones Negative (NEG) Urine Occult Blood Negative (NEG) Urine Nitrate Negative (NEG) Urine Bilirubin Negative (NEG) Urine Urobilinogen 0.2 (0.2) EU/dL Ur Leukocyte Esterase Negative (NEG) Ur Culture Indicated? Culture not set - EKG Data -: EKG Interpreted by Me Rate: Bradycardia EKG Shows Normal: Sinus Rhythm - Imaging Status: Report Reviewed by Me (CT scan positive for pancreatitis. I did review this with the emergency room physician. We could not isolate or find the common bile duct. The graft MRI of abdomen was negative for common bile duct stone. Ultrasound was negative for common bile duct stone. The pancreas was not well visualized on that study.) Assessment and Plan - Patient Problems (1) BPH (benign prostatic hyperplasia) Current Visit: Yes Status: Acute Code(s): N40.0 - Benign prostatic hyperplasia without lower urinary tract symptoms Qualifiers: Lower urinary tract symptom presence: symptoms present Lower urinary tract symptom detail: unspecified Qualified Code(s): N40.1 - Benign prostatic hyperplasia with lower urinary tract symptoms (2) Pancreatitis Current Visit: Yes Status: Acute Code(s): K85.90 - Acute pancreatitis without necrosis or infection, unspecified Qualifiers: Chronicity: acute Pancreatitis type: biliary Acute pancreatitis complication: no infection or necrosis Qualified Code(s): K85.10 - Biliary acute pancreatitis without necrosis or infection - Assessment / Plan Additional Assessment/Plan Details: admit the patient IV narcotics and antiemetics NPO, may consider ice chips if patient desires We did studies to make sure that the gallbladder is the cause, there is no acute cholecystitis, there is no common bile duct obstruction, but LFTs and elevated total bili remained can suggest that it could be biliary tract involvement. This is his second bout of pancreatitis, so makes it somewhat difficult to determine but I think he may need his gallbladder out. check IgE level check lipase in AM check lipids Consult surgery. Hold off on antibiotics at this time. Discussed with the patient and his and they agreed with the plan.
--- NOTE | 2018-03-27 17:22 | CONSULT ---
Consult Note - Consult Consult Date: 03/27/18 Reason for Consult: PreOp Consulation : General Surgery Requesting Physician: Dr. Herrera Primary Care Provider: Jac Moore MD - History of Present Illness History of Present Illness: 62-year-old gentleman a he developed acute abdominal pain this morning. Patient states that he had one beer last night. He has a known history of gallstones. His workup showed that he had elevated lipase. Patient had also found to show cholelithiasis, bile duct was normal size. No evidence acute cholecystitis. CT scan showed cholelithiasis. No evidence acute cholecystitis. Common bile duct was 5-7 mm. Patient and subsequent had an MRI which showed a pancreatitis and cholelithiasis, bile duct was 5 mm. It might benefit feeling defect in the distal common bile duct. Review of Systems - Review of Systems All Systems: Reviewed & No Additional Complaints Except as Stated Past Medical History Medical History: 1. Benign prostatic hypertrophy with obstructive symptoms Surgical History: 1. Prostate biopsy, negative for prostate cancer. Pertinent Family History: Significant family history of gallbladder disease including his siblings, his parents. His father of COPD and his mother had breast cancer and Alzheimer's dementia. Past Social History: Does not smoke. Rarely drinks alcohol. . Had 3 children but one unfortunately of SIDS. His other 2 children are healthy. 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 Tobacco Use: Never Smoker Do you dip or chew tobacco: No In the Past 12 Months, Have Used or Abuse Any of the Following Substance: None Alcohol Use: Rarely Medication / Allergies Home Medications: Home Medications 3 Medication Instructions Recorded Confirmed Type Aspirin [Aspir 81] 81 mg ORAL QD tab 12/10/11 03/27/18 History [place]-3 Fatty Acids/Fish Oil [Fish 1 ea PO QD #90 cap 10/23/12 03/27/18 History Oil 1,000 Mg Capsule] Cholecalciferol (Vitamin D3) 1 cap PO QD #90 cap 11/10/15 03/27/18 History [Vitamin D-3] Tamsulosin HCl [Flomax] 1 cap ORAL QD #30 cap 01/28/17 03/27/18 Rx Ibuprofen [Advil] 400 mg PO QID PRN 02/18/17 03/27/18 History finasteride 5 mg tablet 5 mg PO QDAY #30 tab 02/19/18 03/27/18 Rx simvastatin 40 mg tablet 40 mg PO QHS #30 tab 03/25/18 03/27/18 Rx Glucosamine Sulfate Dipot Chlr 1,000 mg PO DAILY 03/27/18 03/27/18 History [Glucosamine] Allergies/Adverse Reactions: Allergies 3 Allergy/AdvReac Type Severity Reaction Status Date / Time No Known Allergies Allergy Verified 03/27/18 09:17 Results - Labs CBC and BMP: 03/27/18 09:35 03/27/18 09:35 Exam - Vitals Vital Signs: Vital Signs Temperature 98.7 F Temperature Source Temporal Artery Scan Pulse Rate [Apical] 80 Pulse Rate 96 Respiratory Rate 14 Blood Pressure [Left Arm] 94/84 Blood Pressure 101/74 Pulse Ox 96 Oxygen Flow Rate 2 Oxygen Delivery Method Nasal Cannula Height 5 ft 9 in Weight 191 lb 3.2 oz - Cardiovascular Cardiovascular Exam: POSITIVE: No Murmur - GI/Abdominal GI/Abdominal Exam: POSITIVE: Normal Bowel Sounds, Non Distended, Soft Additional GI/Abdominal Exam Details: Midepigastric tenderness with no rebound Assessment and Plan - Patient Problems (1) Pancreatitis Current Visit: Yes Status: Acute Code(s): K85.90 - Acute pancreatitis without necrosis or infection, unspecified Qualifiers: Chronicity: acute Pancreatitis type: biliary Acute pancreatitis complication: no infection or necrosis Qualified Code(s): K85.10 - Biliary acute pancreatitis without necrosis or infection (2) Cholelithiasis Current Visit: Yes Status: Acute Code(s): K80.20 - Calculus of gallbladder without cholecystitis without obstruction (3) Cholelithiasis and acute cholecystitis without obstruction Current Visit: Yes Status: Acute Code(s): K80.00 - Calculus of gallbladder with acute cholecystitis without obstruction (4) Cholelithiasis Current Visit: Yes Status: Acute Code(s): K80.20 - Calculus of gallbladder without cholecystitis without obstruction - Assessment / Plan Additional Assessment/Plan Details: Patient has pancreatitis question whether this is alcoholic induced are is gallstone pancreatitis. First the [place] pancreatitis get this to resolve. The patient is a laparoscopic cholecystectomy but the question is timing of the surgery with this at this admission are we discharge him home and bring it back. We will reevaluate this in the morning.
[2018-03-27] MEDS: TAMSULOSIN 0.4 MG CAPSULE PO SCH (20:04)
[2018-03-28 04:44] LABS: BASOPHILS # (AUTO) 0.01 10*3/UL; BASOPHILS % (AUTO) 0.1 % (0-1); EOSINOPHILS % (AUTO) 0.6 % (0-8); Hematocrit [HCT] 36.2 % (42.0-52.0); Hemoglobin [HGB] 11.8 g/dL (14.0-18.0); LYMPHOCYTES # (AUTO) 1.23 10*3/uL; MEAN CORPUSCULAR HEMOGLOBIN 30.4 PG (27-31); MEAN CORPUSCULAR HGB CONC 32.6 g/dL (33-37); MEAN CORPUSCULAR VOLUME 93.3 FL (80-90); MEAN PLATELET VOLUME 10.1 FL (7.4-12.2); MONOCYTES # (AUTO) 1.47 10*3/UL (0.3-0.8); NEUTROPHILS # (AUTO) 13.47 10*3/UL; NEUTROPHILS % (AUTO) 82.6 % (50-80); RED BLOOD COUNT 3.88 10^6/uL (4.70-6.10)
[2018-03-28 05:21] LABS: BLOOD UREA NITROGEN 20 mg/dL (7-22); BUN/CREATININE RATIO 22.22 (6-20); CHOL/HDL RATIO 1.47 RATIO (0-4.0); SERUM ALBUMIN 3.1 g/dL (3.5-4.8); SERUM CHOLESTEROL 100 mg/dL (120-200)
[2018-03-28 05:33] LABS: PLATELET MORPHOLOGY COMMENT NORMAL MORPHOLOGY (NORM); RBC MORPHOLOGY COMMENT NORMAL MORPHOLOGY (NORM); WBC MORPHOLOGY COMMENT NORMAL MORPHOLOGY (NORM)
[2018-03-28 06:11] LABS: LIPASE 5323 IU/L (23-300)
[2018-03-28] MEDS: D5-1/2NS + 20mEq KCL 1,000 ML PRIMARY IV SCH ×2 (07:08→15:43)
--- NOTE | 2018-03-28 09:16 | PDOC(PROG) ---
Date and Time of Service: 03/28/2018 and 9:15 Interval History: Patient states that he is feeling better. But he still is some epigastric tenderness Objective : Data - Labs CBC and BMP: 03/28/18 04:31 03/28/18 04:31 - Vital Signs Vital Signs and I&O: Vital Signs - Last Taken Temperature 98.3 F 03/28/18 08:22 Pulse Rate 78 03/28/18 08:22 Respiratory Rate 20 03/28/18 08:22 Blood Pressure 139/73 03/28/18 08:22 Pulse Ox 94 03/28/18 08:22 Intake and Output (24hr x 4 totals) 03/26/18 03/27/18 03/28/18 03/29/18 05:59 05:59 05:59 05:59 Intake Total 3467 / 3467 Output Total 785 / 785 100 / 100 Balance 2682 / 2682 -100 / -100 Objective : Exam - GI/Abdominal Additional GI/Abdominal Exam Details: He has midepigastric tenderness but less than yesterday. Abdomen otherwise soft no rebound or rigidity Assessment and Plan - Patient Problems (1) Pancreatitis Current Visit: Yes Status: Acute Code(s): K85.90 - Acute pancreatitis without necrosis or infection, unspecified Qualifiers: Chronicity: acute Pancreatitis type: biliary Acute pancreatitis complication: no infection or necrosis Qualified Code(s): K85.10 - Biliary acute pancreatitis without necrosis or infection (2) Cholelithiasis Current Visit: Yes Status: Acute Code(s): K80.20 - Calculus of gallbladder without cholecystitis without obstruction (3) Cholelithiasis and acute cholecystitis without obstruction Current Visit: Yes Status: Acute Code(s): K80.00 - Calculus of gallbladder with acute cholecystitis without obstruction (4) Cholelithiasis Current Visit: Yes Status: Acute Code(s): K80.20 - Calculus of gallbladder without cholecystitis without obstruction - Assessment / Plan Additional Assessment/Plan Details: At this point would let his pancreatitis resolved. I think most likely he'll be ready for surgery on 06/01/2018. Dr. Wilks is covering this weekend for me.
[2018-03-28] MEDS: PANTOPRAZOLE IV 40 MG VIAL IVP SCH (10:20)
--- NOTE | 2018-03-28 18:16 | PDOC(PROG) ---
Interval History: Patient is doing well pain is improved Objective : Data - Labs CBC and BMP: 03/28/18 04:31 03/28/18 04:31 Objective : Exam - General General Appearance: No Acute Distress, Cooperative - Respiratory Respiratory Exam: Clear to Auscultation - Bilaterally, Breathing Non Labored, Normal To Percussion, Normal to Percussion and Palpation - Cardiovascular Cardiovascular Exam: RRR, No Murmur, No Clicks, No Gallops, No Rubs, PMI Non- Displaced - GI/Abdominal GI/Abdominal Exam: Normal Bowel Sounds, Non Tender, Non Distended, Soft, No Masses, No Hepatomegaly, No Splenomegaly, No Organomegaly - Extremities Extremities Exam: No Clubbing Present, No Edema Present, No Cyanosis Present - Neurological Neurological Exam: Alert, Oriented x 3, Reflexes Normal, Normal Gait, CN II-XII Intact, No Facial Droop, Moves All Extremities Equally Assessment and Plan - Patient Problems (1) Pancreatitis Current Visit: Yes Status: Acute Code(s): K85.90 - Acute pancreatitis without necrosis or infection, unspecified Qualifiers: Chronicity: acute Pancreatitis type: biliary Acute pancreatitis complication: no infection or necrosis Qualified Code(s): K85.10 - Biliary acute pancreatitis without necrosis or infection (2) BPH (benign prostatic hyperplasia) Current Visit: Yes Status: Acute Code(s): N40.0 - Benign prostatic hyperplasia without lower urinary tract symptoms Qualifiers: Lower urinary tract symptom presence: symptoms present Lower urinary tract symptom detail: unspecified Qualified Code(s): N40.1 - Benign prostatic hyperplasia with lower urinary tract symptoms - Assessment / Plan Additional Assessment/Plan Details: #1 acute pancreatitiscontinue nothing by mouth IV fluids pain control most likely will need a cholecystectomy on Saturday as per general surgery continue current medications and pain meds check labs in a.m.
[2018-03-28] MEDS: TAMSULOSIN 0.4 MG CAPSULE PO SCH (21:15)
[2018-03-29] MEDS: D5-1/2NS + 20mEq KCL 1,000 ML PRIMARY IV SCH ×3 (00:10→18:24)
[2018-03-29 04:56] LABS: Hematocrit [HCT] 36.5 % (42.0-52.0); MEAN CORPUSCULAR HEMOGLOBIN 30.4 PG (27-31); MEAN CORPUSCULAR HGB CONC 32.9 g/dL (33-37); MEAN CORPUSCULAR VOLUME 92.4 FL (80-90); MEAN PLATELET VOLUME 10.1 FL (7.4-12.2); RED BLOOD COUNT 3.95 10^6/uL (4.70-6.10)
[2018-03-29 05:08] LABS: BLOOD UREA NITROGEN 13 mg/dL (7-22); BUN/CREATININE RATIO 14.44 (6-20)
[2018-03-29 05:33] LABS: LIPASE 2075 IU/L (23-300)
[2018-03-29] MEDS: PANTOPRAZOLE IV 40 MG VIAL IVP SCH (09:39)
--- NOTE | 2018-03-29 10:41 | PDOC(PROG) ---
Interval History: Doing better no pain passing gas no stools no nausea no vomiting Objective : Data - Labs CBC and BMP: 03/29/18 04:23 03/29/18 04:23 Objective : Exam - General General Appearance: No Acute Distress, Cooperative - Respiratory Respiratory Exam: Clear to Auscultation - Bilaterally, Breathing Non Labored, Normal To Percussion, Normal to Percussion and Palpation - Cardiovascular Cardiovascular Exam: RRR, No Murmur, No Clicks, No Gallops, No Rubs, PMI Non- Displaced - GI/Abdominal GI/Abdominal Exam: Normal Bowel Sounds, Non Tender, Non Distended, Soft, No Masses, No Hepatomegaly, No Splenomegaly, No Organomegaly Assessment and Plan - Patient Problems (1) Pancreatitis Current Visit: Yes Status: Acute Comment: Improving lipase is continued to decrease most likely patient will have surgery Saturday for his gallbladder as per general surgeon Code(s): K85.90 - Acute pancreatitis without necrosis or infection, unspecified Qualifiers: Chronicity: acute Pancreatitis type: biliary Acute pancreatitis complication: no infection or necrosis Qualified Code(s): K85.10 - Biliary acute pancreatitis without necrosis or infection (2) BPH (benign prostatic hyperplasia) Current Visit: Yes Status: Acute Comment: Stable Code(s): N40.0 - Benign prostatic hyperplasia without lower urinary tract symptoms Qualifiers: Lower urinary tract symptom presence: symptoms present Lower urinary tract symptom detail: unspecified Qualified Code(s): N40.1 - Benign prostatic hyperplasia with lower urinary tract symptoms
[2018-03-29] MEDS: TAMSULOSIN 0.4 MG CAPSULE PO SCH (20:39)
[2018-03-30] MEDS: D5-1/2NS + 20mEq KCL 1,000 ML PRIMARY IV SCH ×3 (02:41→20:03)
[2018-03-30] MEDS: PANTOPRAZOLE IV 40 MG VIAL IVP SCH (08:54)
[2018-03-30 10:58] LABS: BLOOD UREA NITROGEN 13 mg/dL (7-22); BUN/CREATININE RATIO 14.44 (6-20); LIPASE 727 IU/L (23-300); SERUM ALBUMIN 3.7 g/dL (3.5-4.8)
--- NOTE | 2018-03-30 11:14 | PDOC(PROG) ---
Interval History: Patient is comfortable as no complaints no abdominal pain is wanting to know what time her surgery is tomorrow I told him he would have to ask the nurses to call the surgeon most likely in the morning I told him Objective : Data - Labs CBC and BMP: 03/29/18 04:23 03/30/18 10:37 Objective : Exam - Respiratory Respiratory Exam: Clear to Auscultation - Bilaterally, Breathing Non Labored, Normal To Percussion, Normal to Percussion and Palpation - Cardiovascular Cardiovascular Exam: RRR, No Murmur, No Clicks, No Gallops, No Rubs, PMI Non- Displaced - GI/Abdominal GI/Abdominal Exam: Normal Bowel Sounds, Non Tender, Non Distended, Soft, No Masses, No Hepatomegaly, No Splenomegaly, No Organomegaly - Extremities Extremities Exam: No Clubbing Present, No Edema Present Assessment and Plan - Patient Problems (1) Pancreatitis Current Visit: Yes Status: Acute Comment: Improving lipase 700 range schedule surgery tomorrow Dr. arlette Rubin Code(s): K85.90 - Acute pancreatitis without necrosis or infection, unspecified Qualifiers: Chronicity: acute Pancreatitis type: biliary Acute pancreatitis complication: no infection or necrosis Qualified Code(s): K85.10 - Biliary acute pancreatitis without necrosis or infection (2) BPH (benign prostatic hyperplasia) Current Visit: Yes Status: Acute Comment: Stable Code(s): N40.0 - Benign prostatic hyperplasia without lower urinary tract symptoms Qualifiers: Lower urinary tract symptom presence: symptoms present Lower urinary tract symptom detail: unspecified Qualified Code(s): N40.1 - Benign prostatic hyperplasia with lower urinary tract symptoms
[2018-03-30] MEDS: TAMSULOSIN 0.4 MG CAPSULE PO SCH (20:16)
[2018-03-31] MEDS: D5-1/2NS + 20mEq KCL 1,000 ML PRIMARY IV SCH (03:46)
[2018-03-31 06:20] VITALS: BP 126/75; RESP 17; TEMP 97.7; O2SAT 94
[2018-03-31 06:27] LABS: BLOOD UREA NITROGEN 13 mg/dL (7-22); SERUM ALBUMIN 3.8 g/dL (3.5-4.8)
--- NOTE | 2018-03-31 08:51 | PDOC(PROG) ---
Date and Time of Service: 03/31/2018 at 8 AM Interval History: Patient states is having no abdominal pain Objective : Data - Labs CBC and BMP: 03/29/18 04:23 03/31/18 06:04 - Vital Signs Vital Signs and I&O: Vital Signs - Last Taken Temperature 97.7 F 03/31/18 06:18 Pulse Rate 68 03/31/18 07:00 Respiratory Rate 17 03/31/18 06:18 Blood Pressure 126/75 03/31/18 06:18 Pulse Ox 94 03/31/18 06:18 Intake and Output (24hr x 4 totals) 03/29/18 03/30/18 03/31/18 04/01/18 05:59 05:59 05:59 05:59 Intake Total 1310 / 1310 649 / 649 2606 / 2606 Output Total 2099 / 2100 2075 / 2075 1425 / 1425 500 / 500 Balance -790 / -790 -1426 / -1426 1181 / 1181 -500 / -500 Objective : Exam - GI/Abdominal GI/Abdominal Exam: Non Tender, Non Distended, Soft Assessment and Plan - Patient Problems (1) Pancreatitis Current Visit: Yes Status: Acute Code(s): K85.90 - Acute pancreatitis without necrosis or infection, unspecified Qualifiers: Chronicity: acute Pancreatitis type: biliary Acute pancreatitis complication: no infection or necrosis Qualified Code(s): K85.10 - Biliary acute pancreatitis without necrosis or infection (2) Cholelithiasis Current Visit: Yes Status: Acute Code(s): K80.20 - Calculus of gallbladder without cholecystitis without obstruction (3) Cholelithiasis and acute cholecystitis without obstruction Current Visit: Yes Status: Acute Code(s): K80.00 - Calculus of gallbladder with acute cholecystitis without obstruction (4) Cholelithiasis Current Visit: Yes Status: Acute Code(s): K80.20 - Calculus of gallbladder without cholecystitis without obstruction - Assessment / Plan Additional Assessment/Plan Details: Patient is pain-free but his lipase is still above 500. I think given the fact that lipase still elevated we need to hold off on doing surgery another 24 hours. But this will make the patient nothing by mouth for 6 days. Therefore think you be malnourished and should not have his surgery and at this time. I think the best thing to do is give him a diet since he is pain-free. If he tolerates diet he can be discharged home. He'll follow-up with me on the 2017. He will get his laparoscopic cholecystectomy done as an outpatient.
[2018-03-31] MEDS: PANTOPRAZOLE IV 40 MG VIAL IVP SCH (09:31)
--- NOTE | 2018-03-31 10:29 | DCSUMMARY ---
Hospitalization Summary Hospital Course: Final Discharge Diagnosis: Current Visit Problems Problem Status Onset Code Pancreatitis Acute K85.90 BPH (benign prostatic hyperplasia) Acute N40.0 Cholelithiasis Acute K80.20 Cholelithiasis and acute cholecystitis without obstruction Acute K80.00 Cholelithiasis Acute K80.20 Diagnostic Data, Laboratory Data, and Procedures of Signifigance: Abnormal Lab Results (Last 24 Hours) Range/Units 03/30/18 03/31/18 03/31/18 10:37 06:04 06:04 Carbon Dioxide (23-33) meq/L 20 L 22 L Glucose (78-110) mg/dL 117 H Total Bilirubin (0.3-1.2) mg/dL 1.9 H 1.6 H Albumin/Globulin Ratio (1.3-2.0) mg/g 1.10 L 1.10 L Lipase (23-300) IU/L 727 H 569 H History and Physical pertinent to Admission: Past Medical History Medical History: 1. Benign prostatic hypertrophy with obstructive symptoms Surgical History: 1. Prostate biopsy, negative for prostate cancer. Pertinent Family History: Significant family history of gallbladder disease including his siblings, his parents. His father of COPD and his mother had breast cancer and Alzheimer's dementia. Past Social History: Does not smoke. Rarely drinks alcohol. . Had 3 children but one unfortunately of SIDS. His other 2 children are healthy. 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 Tobacco Use: Never Smoker Do you dip or chew tobacco: No Course of Hospitalization: Is a very nice 62-year-old gentleman who comes in with abdominal pain and diagnosed with the pancreatitis , lipase and 34,000 also diagnosed with cholelithiasis on ultrasound he does have a history of pancreatitis about 2 years ago his pain is totally gone tolerated the regular diet today he was seen by general surgery who is opting to do outpatient laparoscopic cholecystectomy he has an appointment with him on would like lipase below [address] arlette Rubin On the date of discharge, the patient was examined: Gen.: No acute distress, alert, nontoxic Heart: Regular rate and rhythm, no murmurs, clicks, gallops, or rubs Lungs: Clear to auscultation bilaterally, breathing is nonlabored Abdomen/GI: Normal tones on auscultation, soft, nontender, nondistended Musculoskeletal/extremities: No clubbing, cyanosis, or edema Vitals reviewed and are listed below Vital Signs (24 hrs) Temp Pulse Pulse Resp BP Pulse Ox 03/31/18 07:00 68 03/31/18 06:18 97.7 F 58 L 17 126/75 94 03/31/18 04:25 95 03/31/18 03:46 97.8 F 53 L 16 120/64 94 03/31/18 00:00 98.2 F 55 L 18 136/68 95 03/30/18 20:11 98.1 F 54 L 18 154/83 95 03/30/18 16:11 97.8 F 49 L 16 142/74 96 03/30/18 11:35 97.2 F 53 L 18 135/78 96 Assessment and Plan: 1. As per discharge assessments above 2. Disposition: 3. Condition on discharge, stable and improved. 4. Diet: regular diet 5. Activities: resume normal activities 6. Follow-Up: 1. PCP and Dr. arlette Rubin 2. 7. Medications at the Time of Discharge: Home Medications 3 Medication Instructions Recorded Confirmed Type Aspirin [Aspir 81] 81 mg ORAL QD tab 12/10/11 03/30/18 History [place]-3 Fatty Acids/Fish Oil [Fish 1 ea PO QD #90 cap 10/23/12 03/30/18 History Oil 1,000 mg Capsule] Cholecalciferol (Vitamin D3) 1 cap PO QD #90 cap 11/10/15 03/30/18 History [Vitamin D3] Tamsulosin HCl [Flomax] 1 cap ORAL QD #30 cap 01/28/17 03/30/18 Rx finasteride 5 mg tablet 5 mg PO QDAY #30 tab 02/19/18 03/30/18 Rx simvastatin 40 mg tablet 40 mg PO QHS #30 tab 03/25/18 03/30/18 Rx Glucosamine Sulfate Dipot Chlr 1,000 mg PO DAILY 03/27/18 03/30/18 History [Glucosamine] 8. Time, care, counseling and coordination of care for this discharge is greater than 30 minutes. Exam - Vitals Vital Signs: Vital Signs Temperature 97.7 F Temperature Source Temporal Artery Scan Pulse Rate [Pulse Oximeter] 58 Pulse Rate [Apical] 68 Pulse Rate 96 Respiratory Rate 17 Blood Pressure [Right Arm] 126/75 Blood Pressure [Left Arm] 150/81 Blood Pressure 101/74 Pulse Ox 94 Oxygen Flow Rate 2 Oxygen Delivery Method Room Air Height 5 ft 9 in Weight 182 lb Patient Problems - Patient Problem List (1) Pancreatitis Current Visit: Yes Status: Acute Code(s): K85.90 - Acute pancreatitis without necrosis or infection, unspecified Qualifiers: Chronicity: acute Pancreatitis type: biliary Acute pancreatitis complication: no infection or necrosis Qualified Code(s): K85.10 - Biliary acute pancreatitis without necrosis or infection Category: Medical (2) BPH (benign prostatic hyperplasia) Current Visit: Yes Status: Acute Code(s): N40.0 - Benign prostatic hyperplasia without lower urinary tract symptoms Qualifiers: Lower urinary tract symptom presence: symptoms present Lower urinary tract symptom detail: unspecified Qualified Code(s): N40.1 - Benign prostatic hyperplasia with lower urinary tract symptoms Category: Medical
== END 2018-03-31 11:37 | disposition home or self-care (01) | DRG 439 ==
LOC: ER 09:14 → MED/SURG 14:53
PROVIDERS: ADMIT Family Medicine; ATTEND Family Medicine